=== PATIENT | female | born 1990 | race Caucasian/White ===

== ENCOUNTER 2023-02-28 08:31 | Outpatient (CLI) | payer BC, SELFPAY | END 2023-02-28 08:32 | disposition home or self-care (01) | LOC: NFLDREF 03-01 11:40 | PROVIDERS: Visit Provider Registered Nurse | DX: Z13.220 Encounter for screening for lipoid disorders (principal); R63.5 Abnormal weight gain | CPT/HCPCS: 80061; 84443 ==

== ENCOUNTER 2025-01-19 00:37 | Emergency (ER) | payer BC, SELFPAY ==
--- OUTSIDE RECORDS SUMMARY | 2025-01-19 00:39 | XMS_ITS | Clinical Summary ---
Author Organization [place] Address Formerly [facility] [place] [address] Care Team Providers Care It Architecture Analyst Name Role Phone Isabell Haro MD Primary Care Provider [phone] Allergies No known active allergies Medications No known medications Active Problems Problem Noted Date Diagnosed Date Vaginal delivery 07/13/2016 Family history of malignant neoplasm of breast 1 Overview (12/27/2015): Mother had BRCA testing and was negative. Generalized anxiety disorder 10/02/2012 Overview (01/24/2015): Diagnosis updated by automated process. Provider to review and confirm. CARDIOVASCULAR SCREENING; LDL GOAL LESS THAN 160 01/22/2010 Insomnia 05/04/2007 Overview (12/24/2014): Problem list name updated by automated process. Provider to review Resolved Problems Problem Noted Date Diagnosed Date Resolved Date Labor and delivery indicatio n for care or intervention 07/12/2016 07/17/2016 Indication for care in labor or delivery 07/12/2016 07/17/2016 Encounter for supervision of normal first in third trimester 05/23/2016 07/17/2016 Supervision of normal first 01/26/2016 05/23/2016 Routine general medical exam ination at a health care facility 03/05/2013 12/27/2015 Encounter for routine gyneco logical examination 03/05/2013 12/27/2015 Overview (12/24/2014): Problem list name updated by automated process. 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 Provider to review Irregular menstrual cycle 09/26/2006 lópez splints 11/16/2005 01/21/2012 Immunizations Immunization Administration Dates Next Due DTAP (<7y) 07/23/1994 HIB (PRP-T) 03/11/1990 HPV 04/17/2007,12/02/2006,09/26/2006 HepB 11/07/1998,06/02/1998,05/02/1998 Historical DTP/aP 11/03/1990, 0,1989,07/04 Influenza (IIV3) PF 01/21/2012,02/18/2008,2001 Influenza Vaccine >6 months,quad, PF 01/29/2018 Influenza Vaccine, 6+MO IM (QUADRIVALENT W/PRESERVATIVES) 12/27/2015 MMR (MMRII) 10/23/2001,08/04/1990 Meningococcal ACWY (Menactra ) 09/26/2006 OPV, trivalent, live 07/23/1994,11/03/18 91,1989,07/04 TD,PF 7+ (Tenivac) 10/23/2001 TDAP Vaccine (Adacel) 04/25/2016 TDAP Vaccine (Boostrix) 09/26/2006 Family History Medical History Relation Comments Breast Cancer Maternal Aunt 1 Cancer Maternal Aunt 2 cervical and Josh g Depression Maternal Aunt 3 Cerebrovascular Disease Maternal Grandfather min i strokes Heart Disease Maternal Grandfather minor heart attacks Cancer Maternal Grandmother michael Heart Disease Maternal Grandmother major heart problems and heart transplant Allergies Mother allergic to peni cillin Breast Cancer Mother Depression Mother Depression Sister Relation Status Comments Maternal Aunt 1 Maternal Aunt 2 Maternal Aunt 3 Maternal Grandfather Maternal Grandmother Mother Sister Social History Tobacco Use Types Packs/Day Years Used Date Smoking Tobacco: Never Smokeless Tobacco: Never Alcohol Use Standard Drinks/Week Comments Yes 1 (1 standard drink = 0.6 oz pur e alcohol) socially PHQ-2 Answer Date Recorded PHQ-2 Score 0 04/01/2018 Adolescent Education Answer Date Record ed Getting School Help Needed Not on file 12/30 Comments No Sex and Gender Information Value Date Recorded Sex Assigned at Not on file 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 Gender Identity Not on file Sexual Orientation Not on file Last Filed Vital Signs Vital Sign Reading Time Taken Comments Blood Pressure 110/66 08/18/2018 5:44 PM CDT Pulse 95 08/18/2018 5:44 PM CDT Temperature 37.2 C (99 F) 08/18/2018 5:44 PM CDT Respiratory Rate 16 07/15/2016 8:57 AM CDT Oxygen Saturation 98% 08/18/2018 5:44 PM CDT Inhaled Oxygen Concentration - - Weight 63 kg (138 lb 14.4 oz) 08/18/2018 5:44 PM CDT Height 165.1 cm (5' 5) 08/21/2017 7:45 AM CDT Body Mass Index 23.11 08/21/2017 7:45 AM CDT Plan of Treatment Not on file Insurance [facility] [place] Care Teams It Architecture Analyst Relationship Specialty Start Date End Date Isabell Haro MD [address] [facility] [place] [address] PCP - General Internal Medicine 08/21/17
--- OUTSIDE RECORDS SUMMARY | 2025-01-19 00:39 | XMS_ITS | Encounter Summary ---
Author Organization [place] Address [address] [facility] [place] [address] Care Team Providers Care Forms Builder Name Role Phone Stacy Dominguez MD Primary Care Provider [phone] Isabell Haro MD Primary Care Provider [phone] Isabell Haro MD Unavailable [phone] Isabell Haro MD Unavailable [phone] Reason for Visit * Reason Onset Date Comments Appointment 08/12/2017 Encounter Details Date Type Department Care Team (Late st Contact Info) Description 08/12/2017 MyC Medical Advice [facility] [place] [address] [place] [phone] Jackeline Puga MD [address] [place] [address] Appointment Social History Tobacco Use Types Packs/Day Years Used Date Smoking Tobacco: Never Smokeless Tobacco: Never Alcohol Use Standard Drinks/Week Comments Yes 1 (1 standard drink = 0.6 oz pur e alcohol) socially Comments No Sex and Gender Information Value Date Recorded Sex Assigned at Not on file 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 Gender Identity Not on file Sexual Orientation Not on file documented as of this encounter Plan of Treatment Not on file documented as of this encounter Visit Diagnoses Not on filedocumented in this encounter Additional Health Concerns Assessment Noted Time PHQ-9 Depression Total Score: 3 08/23/19 17 7:15 AM CDT documented as of this encounter Care Teams Forms Builder Relationship Specialty Start Date End Date Stacy Dominguez MD PCP - General Internal Medicine 07/26/15 08/20/17 Isabell Haro MD [facility] [facility] [place] [address] PCP - General Internal Medicine 08/21/17 Isabell Haro MD [address] [facility] [place] [address] PCP - Assigned PCP 08/25/17 05/27/18 Isabell Haor MD [address] [facility] [place] [address] Assigned PCP 08/25/17 08/27/20 documented as of this encounter
--- OUTSIDE RECORDS SUMMARY | 2025-01-19 00:39 | XMS_ITS | Encounter Summary ---
Author Organization [place] Address [address] [facility] [place] [address] Care Team Providers Care Sheeter Helper Name Role Phone Isabell Haro MD Primary Care Provider [phone] Isabell Haro MD Unavailable [phone] Encounter Details Date Type Department Care Team (Late st Contact Info) Description 07/31/[address] [place] [id number] Paul Jackson Social History Tobacco Use Types Packs/Day Years Used Date Smoking Tobacco: Never Smokeless Tobacco: Never Alcohol Use Standard Drinks/Week Comments Yes 1 (1 standard drink = 0.6 oz pur e alcohol) socially PHQ-2 Answer Date Recorded PHQ-2 Score 0 04/01/2018 Comments No Sex and Gender Information Value Date Recorded Sex Assigned at Not on file 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 Gender Identity Not on file Sexual Orientation Not on file documented as of this encounter Plan of Treatment Not on file documented as of this encounter Visit Diagnoses Not on filedocumented in this encounter Additional Health Concerns Assessment Noted Time PHQ-9 Depression Total Score: 3 08/23/19 17 7:15 AM CDT documented as of this encounter Care Teams Sheeter Helper Relationship Specialty Start Date End Date Isabell Haro MD [address] [facility] [place] [address] PCP - General Internal Medicine 08/21/17 Isabell Haro MD [address] [facility] [place] [address] Assigned PCP 08/25/17 08/27/20 documented as of this encounter
--- OUTSIDE RECORDS SUMMARY | 2025-01-19 00:39 | XMS_ITS | Encounter Summary ---
Author Organization [place] Address Formerly [facility], [address] [place] [address] Care Team Providers Care Wood Boatbuilder Name Role Phone Ivory Duncan MD Primary Care Provider Unavailable Jose Miguel Mckeon PA-C Primary Care Provider Stacy Dominguez MD Primary Care Provider [phone] Isabell Haro MD Primary Care Provider [phone] Isabell Haro MD Unavailable [phone] Isabell Haro MD Unavailable [phone] Encounter Details Date Type Department Care Team (Late st Contact Info) Description 04/02/2011 MyC Medical Advice Initial Department Paul Jackson Social History Tobacco Use Types Packs/Day Years Used Date Smoking Tobacco: Never Smokeless Tobacco: Never Alcohol Use Standard Drinks/Week Comments Yes 1.7 (1 standard drink = 0.6 oz p ure alcohol) Comments No Sex and Gender Information Value Date Recorded Sex Assigned at Not on file 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 Gender Identity Not on file Sexual Orientation Not on file documented as of this encounter Plan of Treatment Not on file documented as of this encounter Visit Diagnoses Not on filedocumented in this encounter Care Teams Wood Boatbuilder Relationship Specialty Start Date End Date Ivory Duncan MD PCP - General 05/09/01 08/12/11 Jose Miguel Mckeon PA-C [address] [address] PCP - General Family Practice 08/13/11 07/25/15 Stacy Dominguez MD [address] [address] PCP - General Internal Medicine 07/26/15 08/20/17 Isabell Haro MD [address] [place] [address] [place] [address] PCP - General Internal Medicine 08/21/17 Isabell Haro MD [address] [place] [address] [place] [address] PCP - Assigned PCP 08/25/17 05/27/18 Isabell Haro MD [address] [place] [address] [place] [address] Assigned PCP 08/25/17 08/27/20 documented as of this encounter
--- OUTSIDE RECORDS SUMMARY | 2025-01-19 00:39 | XMS_ITS | Encounter Summary ---
Author Organization [place] Address [facility] [place] [address] Care Team Providers Care Table Assembler Name Role Phone Jose Miguel Mckeon PA-C Primary Care Provider Stacy Dominguez MD Primary Care Provider [phone] Isabell Haro MD Primary Care Provider Isabell Haro MD Unavailable [phone] Isabell Haro MD Unavailable [phone] Reason for Visit * Reason Onset Date Comments MyChart Communication 08/13/2011 Encounter Details Date Type Department Care Team (Latest Contact Info) Description 08/13/2011 MyC Medical Advice [address] [address] Jose Miguel Mckeon PA-C [address] [address] MyChart Communication Social History Tobacco Use Types Packs/Day Years Used Date Smoking Tobacco: Never Smokeless Tobacco: Never Alcohol Use Standard Drinks/Week Comments Yes 1.7 (1 standard drink = 0.6 oz p ure alcohol) Comments No Sex and Gender Information Value Date Recorded Sex Assigned at Not on file Legal Sex Female 3:16 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 DAY 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 Gender Identity Not on file Sexual Orientation Not on file documented as of this encounter Plan of Treatment Not on file documented as of this encounter Visit Diagnoses Not on filedocumented in this encounter Care Teams Table Assembler Relationship Specialty Start Date End Date Jose Miguel Mckeon PA-C [address] [address] PCP - General Family Practice 08/13/11 07/25/15 Stacy Dominguez MD [address] [address] PCP - General Internal Medicine 07/26/15 08/20/17 Isabell Haro MD [facility] [facility] [place] [address] PCP - General Internal Medicine 08/21/17 Isabell Haro MD [address] [facility] [place] [address] PCP - Assigned PCP 08/25/17 05/27/18 Isabell Haro MD [facility] [facility] [place] [address] Assigned PCP 08/25/17 08/27/20 documented as of this encounter
--- OUTSIDE RECORDS SUMMARY | 2025-01-19 00:39 | XMS_ITS | Encounter Summary ---
Author Organization [place] Address [facility] [place] [address] Care Team Providers Care Aeronautical Engineering Professor Name Role Phone Jose Miguel Mckeon PA-C Primary Care Provider Stacy Dominguez MD Primary Care Provider [phone] Isabell Haro MD Primary Care Provider [phone] Isabell Haro MD Unavailable [phone] Isabell Haro MD Unavailable Reason for Visit * Reason Onset Date Comments MyChart Communication 01/14/2013 Encounter Details Date Type Department Care Team (Late st Contact Info) Description 01/14/2013 [facility] Medical Advice [facility] [id number] [place] [phone] [facility] Social History Tobacco Use Types Packs/Day Years Used Date Smoking Tobacco: Never Smokeless Tobacco: Never Alcohol Use Standard Drinks/Week Comments Yes 0.8 (1 standard drink = 0.6 oz p ure alcohol) socially Comments No Sex and Gender Information Value Date Recorded Sex Assigned at Not on file 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 Gender Identity Not on file Sexual Orientation Not on file documented as of this encounter Plan of Treatment Not on file documented as of this encounter Visit Diagnoses Not on filedocumented in this encounter Care Teams Aeronautical Engineering Professor Relationship Specialty Start Date End Date Jose Miguel Mckeon PA-C [address] [address] PCP - General Family Practice 08/13/11 07/25/15 Stacy Dominguez MD [address] [address] PCP - General Internal Medicine 07/26/15 08/20/17 Isabell Haro MD [address] [place] [address] [place] [address] PCP - General Internal Medicine 08/21/17 Isabell Haro MD [address] [place] [address] [place] [address] PCP - Assigned PCP 08/25/17 05/27/18 Isabell Haro MD [address] [place] [address] [place] [address] Assigned PCP 08/25/17 08/27/20 documented as of this encounter
--- OUTSIDE RECORDS SUMMARY | 2025-01-19 00:39 | XMS_ITS | Encounter Summary ---
Author Organization [place] Address [facility] [place] [address] Care Team Providers Care Entry Driver Operator Name Role Phone Jose Miguel Mckeon PA-C Primary Care Provider Stacy Dominguez MD Primary Care Provider [phone] Isabell Haro MD Primary Care Provider [phone] Isabell Haro MD Unavailable [phone] Isabell Haro MD Unavailable [phone] Encounter Details Date Type Department Care Team (Late st Contact Info) Description 01/15/2012 [facility] Medical [facility] [address] [place] [address] [facility] Social History Tobacco Use Types Packs/Day Years Used Date Smoking Tobacco: Never Smokeless Tobacco: Never Alcohol Use Standard Drinks/Week Comments Yes 1.7 (1 standard drink = 0.6 oz p ure alcohol) Comments No Sex and Gender Information Value Date Recorded Sex Assigned at Not on file 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 Gender Identity Not on file Sexual Orientation Not on file documented as of this encounter Plan of Treatment Not on file documented as of this encounter Visit Diagnoses Not on filedocumented in this encounter Care Teams Entry Driver Operator Relationship Specialty Start Date End Date Jose Miguel Mckeon PA-C [address] [address] PCP - General Family Practice 08/13/11 07/25/15 Stacy Dominguez MD [address] [address] PCP - General Internal Medicine 07/26/15 08/20/17 Isabell Haro MD [address] [facility] [place] [id number] PCP - General Internal Medicine 08/21/17 Isabell Haro MD [facility] [facility] [place] [address] PCP - Assigned PCP 08/25/17 05/27/18 Isabell Haro MD [facility] [facility] [place] [address] Assigned PCP 08/25/17 08/27/20 documented as of this encounter
--- OUTSIDE RECORDS SUMMARY | 2025-01-19 00:39 | XMS_ITS | Encounter Summary ---
Author Organization [place] Address [facility] [address] Care Team Providers Care Resident Advisor Name Role Phone Jose Miguel Mckeon PA-C Primary Care Provider Stacy Dominguez MD Primary Care Provider [phone] Isabell Haro MD Primary Care Provider [phone] Isabell Haro MD Unavailable [phone] Isabell Haro MD Unavailable [phone] Encounter Details Date Type Department Care Team (Late st Contact Info) Description 02/11/2012 [facility] [address] [place] [address] [facility] Social History Tobacco Use Types Packs/Day Years Used Date Smoking Tobacco: Never Smokeless Tobacco: Never Alcohol Use Standard Drinks/Week Comments Yes 0.8 (1 standard drink = 0.6 oz p ure alcohol) Comments No Sex and Gender Information Value Date Recorded Sex Assigned at Not on file Legal Sex Female 3:16 AM QUALITY CHECKER Gender Identity Not on file Sexual Orientation Not on file documented as of this encounter Plan of Treatment Not on file documented as of this encounter Visit Diagnoses Not on filedocumented in this encounter Care Teams Resident Advisor Relationship Specialty Start Date End Date Jose Miguel Mckeon PA-C [address] [address] PCP - General Family Practice 08/13/11 07/25/15 Stacy Dominguez MD [address] [address] PCP - General Internal Medicine 07/26/15 08/20/17 Isabell Haro MD [address] [facility] [place] [id number] PCP - General Internal Medicine 08/21/17 Isabell Haro MD [facility] [place] [address] PCP - Assigned PCP 08/25/17 05/27/18 Isabell Haro MD [facility] [place] [address] Assigned PCP 08/25/17 08/27/20 documented as of this encounter
--- OUTSIDE RECORDS SUMMARY | 2025-01-19 00:39 | XMS_ITS | Clinical Summary ---
Author Organization [facility] Address [address] [place] [address] Care Team Providers Care Hydrocrane Operator Name Role Phone Pcp, No Primary Care Provider Unavailabl e Allergies No known active allergies Medications cephalexin (KEFLEX) 500 mg capsule Take 500 mg by mouth two times daily. 03/15/2022 Active busPIRone (BUSPAR) 15 mg tablet Take 15 mg by mouth two times daily. 01/30/2022 Active sertraline (ZOLOFT) 50 mg tablet Take 50 mg by mouth once daily. 01/30/2022 Active fluticasone (50 mcg per actuation) nasal solution (FLONASE) SHAKE LIQUID AND USE 1 SPRAY IN EACH NOSTRIL TWICE DAILY 09/20/2021 Active Active Problems No known active problems Social History Tobacco Use Types Packs/Day Years Used Date Smoking Tobacco: Never Smokeless Tobacco: Never Tobacco Cessation:Counseling Given: Not Answered Alcohol Use Standard Drinks/Week Comments Yes 0 (1 standard drink = 0.6 oz pur e alcohol) once weekly Comments No Sex and Gender Information Value Date Recorded Sex Assigned at Not on file Legal Sex Female 4:12 PM CDT Gender Identity Not on file Sexual Orientation Not on file Obstetrics History Last Filed Vital Signs Vital Sign Reading Time Taken Comments Blood Pressure 137/86 03/17/2022 12:30 PM BRIM POUNCER Pulse 62 03/17/2022 12:30 PM BRIM POUNCER Temperature 36.5 C (97.7 F) 03/17/2022 12:30 PM BRIM POUNCER Respiratory Rate 18 03/17/2022 12:30 PM BRIM POUNCER Oxygen Saturation 99% 03/17/2022 12:30 PM BRIM POUNCER Inhaled Oxygen Concentration - - Weight 68 kg (150 lb) 03/17/2022 12:30 PM BRIM POUNCER Height 165.1 cm (5' 5) 03/17/2022 12:30 PM BRIM POUNCER Body Mass Index 24.96 03/17/2022 12:30 PM BRIM POUNCER Plan of Treatment Health Maintenance Due Date Last Done Comments Tetanus booster 2000 Depression screening for age 12+ 2001 HIV for age 15-65 2004 Hepatitis C screening for ag e 18-79 2007 Hepatitis B series for 19+ ( 1 of 3 - 19+ 3-dose series) 2008 HPV series for age 9-45 (1 - 3-dose SCDM series) 2016 BMI (ht and wt on same day) for age 18+ 03/17/2023 03/17/2022 Pap test for age 21-65 07/12/2024 , 07/12/2021, 09/23/2018 Influenza Vaccine (#1) 2024 RSV vaccine for adults or (1 - 1-dose 75+ series) 2064 Pneumococcal series for age 6-49 Aged Out No longer eligible b ased on patient's age to complete this topic Procedures Procedure Name Priority Date/Time Associated Diagnosis Comments HPV HIGH RISK Routine 07/12/2021 12:00 PM CDT from Last 3 Months or Most Recently Relevant to Health Maintenance Results * HPV HIGH RISK (07/12/2021 12:00 PM CDT) TYPE 16 Negative Negative 07/14/2021 2:25 PM CDT [facility] TYPE 18 Negative Negative 07/14/2021 2:25 PM CDT [facility] OTHER HIGH RISK TYPES Negative Negative 07/14/2021 2:25 PM CDT [facility] Other (Cervical/Vagina l) 07/12/2021 12:00 PM CDT 07/13/2021 8:42 AM CDT Narrative [facility] - 07/14/2021 2:25 PM CDT HPV types 16, 18, 31, 33, 35, 39, 45, 51, 52, 56, 58, 59, 66 and 68 DNA were undetectable or below the pre-set threshold. Methodology: [place] 4800 HPV Test us Debbie Mullins NP MICROBIOLOGY Final Res ult [facility] [address] [place] [address], [place] from Last 3 Months or Most Recently Relevant to Health Maintenance Insurance [facility] Care Teams Hydrocrane Operator Relationship Specialty Start Date End Date Pcp, No . PCP - General 03/17/22
--- OUTSIDE RECORDS SUMMARY | 2025-01-19 00:39 | XMS_ITS | Encounter Summary ---
Author Organization [place] Address [address] [facility] [place] [address] Care Team Providers Care Gravel Inspector Name Role Phone Stacy Dominguez MD Primary Care Provider [phone] Isabell Haro MD Primary Care Provider [phone] Isabell Haro MD Unavailable [phone] Isabell Haro MD Unavailable [phone] Reason for Visit * Reason Onset Date Comments Care 06/11/2016 Encounter Details Date Type Department Care Team (Late st Contact Info) Description 06/11/2016 MyC Medical Advice [facility] [address] [place] [address] Jackeline Puga MD [address] [place] [address] Care Social History Tobacco Use Types Packs/Day Years Used Date Smoking Tobacco: Never Smokeless Tobacco: Never Alcohol Use Standard Drinks/Week Comments Yes 1 (1 standard drink = 0.6 oz pur e alcohol) socially Comments Yes Sex and Gender Information Value Date Recorded Sex Assigned at Not on file Legal Sex Female 3:16 AM LEATHER HEEL 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 Gender Identity Not on file Sexual Orientation Not on file documented as of this encounter Plan of Treatment Not on file documented as of this encounter Visit Diagnoses Not on filedocumented in this encounter Care Teams Gravel Inspector Relationship Specialty Start Date End Date Stacy Dominguez MD PCP - General Internal Medicine 07/26/15 08/20/17 Isabell Haro MD [address] [place] [address] [place] [address] PCP - General Internal Medicine 08/21/17 Isabell Haro MD [address] [place] [address] [place] [address] PCP - Assigned PCP 08/25/17 05/27/18 Isabell Haro MD [address] [place] [address] [place] [address] Assigned PCP 08/25/17 08/27/20 documented as of this encounter
--- OUTSIDE RECORDS SUMMARY | 2025-01-19 00:39 | XMS_ITS | Encounter Summary ---
Author Organization [place] Address [address] [facility] [address] Care Team Providers Care Geospatial Engineer Name Role Phone Stacy Dominguez MD Primary Care Provider [phone] Isabell Haro MD Primary Care Provider [phone] Isabell Haro MD Unavailable [phone] Isabell Haro MD Unavailable [phone] Encounter Details Date Type Department Care Team (Late st Contact Info) Description 07/22/2016 MyC Medical Advice [facility] [address] [facility] [address] [place] [address] Jackeline Puga MD [address] [place] [address] Social History Tobacco Use Types Packs/Day Years Used Date Smoking Tobacco: Never Smokeless Tobacco: Never Alcohol Use Standard Drinks/Week Comments Yes 1 (1 standard drink = 0.6 oz pur e alcohol) socially Comments No Sex and Gender Information Value Date Recorded Sex Assigned at Not on file 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 Sex Female 3: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 Gender Identity Not on file Sexual Orientation Not on file documented as of this encounter Plan of Treatment Not on file documented as of this encounter Visit Diagnoses Not on filedocumented in this encounter Care Teams Geospatial Engineer Relationship Specialty Start Date End Date Stacy Dominguez MD PCP - General Internal Medicine 07/26/15 08/20/17 Isabell Haro MD [address] [facility] [place] [address] PCP - General Internal Medicine 08/21/17 Isabell Haro MD [address] [facility] [place] [address] PCP - Assigned PCP 08/25/17 05/27/18 Isabell Haro MD [address] [facility] [place] [address] Assigned PCP 08/25/17 08/27/20 documented as of this encounter
--- OUTSIDE RECORDS SUMMARY | 2025-01-19 00:39 | XMS_ITS | Encounter Summary ---
Author Organization [place] Address [facility] [place] [address] Care Team Providers Care Manager Social Responsibility Name Role Phone Jose Miguel Mckeon PA-C Primary Care Provider Stacy Dominguez MD Primary Care Provider [phone] Isabell Haro MD Primary Care Provider [phone] Isabell Haro MD Unavailable [phone] Isabell Haro MD Unavailable [phone] Encounter Details Date Type Department Care Team (Late st Contact Info) Description 01/07/2012 [facility] [id number] [place] [address] [facility] [facility] Social History Tobacco Use Types Packs/Day Years Used Date Smoking Tobacco: Never Smokeless Tobacco: Never Alcohol Use Standard Drinks/Week Comments Yes 1.7 (1 standard drink = 0.6 oz p ure alcohol) Comments No Sex and Gender Information Value Date Recorded Sex Assigned at Not on file 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 Gender Identity Not on file Sexual Orientation Not on file documented as of this encounter Plan of Treatment Not on file documented as of this encounter Visit Diagnoses Not on filedocumented in this encounter Care Teams Manager Social Responsibility Relationship Specialty Start Date End Date Jose Miguel Mckeon PA-C [address] [address] PCP - General Family Practice 08/13/11 07/25/15 Stacy Dominguez MD [address] [address] PCP - General Internal Medicine 07/26/15 08/20/17 Isabell Haro MD [address] [facility] [place] [id number] PCP - General Internal Medicine 08/21/[address] [facility] [place] [address] PCP - Assigned PCP 08/25/17 05/27/[address] [facility] [place] [address] Assigned PCP 08/25/17 08/27/20 documented as of this encounter
--- OUTSIDE RECORDS SUMMARY | 2025-01-19 00:39 | XMS_ITS | Encounter Summary ---
Author Organization [place] Address [facility] [place] [address] Care Team Providers Care Director Public Service Name Role Phone Jose Miguel Mckeon PA-C Primary Care Provider Stacy Dominguez MD Primary Care Provider [phone] Isabell Haro MD Primary Care Provider [phone] Isabell Haro MD Unavailable [phone] Isabell Haro MD Unavailable [phone] Encounter Details Date Type Department Care Team (Late st Contact Info) Description 10/25/2011 MyC Medical Advice [address] [address] Jose Miguel Mckeon PA-C [facility] [address] [place] [address] Social History Tobacco Use Types Packs/Day Years Used Date Smoking Tobacco: Never Smokeless Tobacco: Never Alcohol Use Standard Drinks/Week Comments Yes 1.7 (1 standard drink = 0.6 oz p ure alcohol) Comments No Sex and Gender Information Value Date Recorded Sex Assigned at Not on file 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 Gender Identity Not on file Sexual Orientation Not on file documented as of this encounter Plan of Treatment Not on file documented as of this encounter Visit Diagnoses Not on filedocumented in this encounter Care Teams Director Public Service Relationship Specialty Start Date End Date Jose Miguel Mckeon PA-C [address] [address] PCP - General Family Practice 08/13/11 07/25/15 Stacy Dominguez MD [address] [address] PCP - General Internal Medicine 07/26/15 08/20/17 Isabell Haro MD [address] [facility] [place] [address] PCP - General Internal Medicine 08/21/17 Isabell Haro MD [address] [facility] [place] [address] PCP - Assigned PCP 08/25/17 05/27/18 Isabell Haro MD [facility] [facility] [place] [address] Assigned PCP 08/25/17 08/27/20 documented as of this encounter
--- OUTSIDE RECORDS SUMMARY | 2025-01-19 00:39 | XMS_ITS | Encounter Summary ---
Author Organization [place] Address [address] [place] [address] Care Team Providers Care Mechanical Product Engineer Name Role Phone Stacy Dominguez MD Primary Care Provider [phone] Isabell Haro MD Primary Care Provider [phone] Isabell Haro MD Unavailable [phone] Isabell Haro MD Unavailable [phone] Encounter Details Date Type Department Care Team (Late st Contact Info) Description 12/03/2016 [facility] [address] [place] [address] Erick De León Social History Tobacco Use Types Packs/Day Years Used Date Smoking Tobacco: Never Smokeless Tobacco: Never Alcohol Use Standard Drinks/Week Comments Yes 1 (1 standard drink = 0.6 oz pur e alcohol) socially Comments No Sex and Gender Information Value Date Recorded Sex Assigned at Not on file 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 [place] [address] PCP - General Internal Medicine 08/21/17 Isabell Haro MD [address] [facility] [place] [address] PCP - Assigned PCP 08/25/17 05/27/18 Isabell Haro MD [address] [facility] [place] [address] Assigned PCP 08/25/17 08/27/20 documented as of this encounter
--- OUTSIDE RECORDS SUMMARY | 2025-01-19 00:39 | XMS_ITS | Encounter Summary ---
Author Organization [place] Address [address] [facility] [address] Care Team Providers Care Electrical Manufacturing Technician Name Role Phone Isabell Haro MD Primary Care Provider [phone] Isabell Haro MD Unavailable [phone] Encounter Details Date Type Department Care Team (Late st Contact Info) Description 08/19/2018 MyC Medical Advice [facility] [address] [place] [address] Isabell Haro MD [address] [place] [address] [place] [address] Social History Tobacco Use Types Packs/Day Years Used Date Smoking Tobacco: Never Smokeless Tobacco: Never Alcohol Use Standard Drinks/Week Comments Yes 1 (1 standard drink = 0.6 oz pur e alcohol) socially PHQ-2 Answer Date Recorded PHQ-2 Score 0 04/01/2018 Comments No Sex and Gender Information Value Date Recorded Sex Assigned at Not on file 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 Gender Identity Not on file Sexual Orientation Not on file documented as of this encounter Plan of Treatment Not on file documented as of this encounter Visit Diagnoses Not on filedocumented in this encounter Additional Health Concerns Assessment Noted Time PHQ-9 Depression Total Score: 3 08/23/19 17 7:15 AM CDT documented as of this encounter Care Teams Electrical Manufacturing Technician Relationship Specialty Start Date End Date Isabell Haro MD [address] [facility] [place] [address] PCP - General Internal Medicine 08/21/17 Isabell Haro MD [address] [facility] [place] [address] Assigned PCP 08/25/17 08/27/20 documented as of this encounter
--- OUTSIDE RECORDS SUMMARY | 2025-01-19 00:39 | XMS_ITS | Encounter Summary ---
Author Organization [place] Address [address] [facility] [place] [address] Care Team Providers Care Drafter Topographical Name Role Phone Stacy Dominguez MD Primary Care Provider [phone] Isabell Haro MD Primary Care Provider [phone] Isabell Haro MD Unavailable [phone] Isabell Haro MD Unavailable [phone] Encounter Details Date Type Department Care Team (Late st Contact Info) Description 03/15/2016 [facility] Medical Advice [address] [address] Jackeline Puga MD [facility] [place] [address] Social History Tobacco Use Types Packs/Day Years Used Date Smoking Tobacco: Never Smokeless Tobacco: Never Alcohol Use Standard Drinks/Week Comments Yes 1 (1 standard drink = 0.6 oz pur e alcohol) socially Comments Yes Sex and Gender Information Value Date Recorded Sex Assigned at Not on file 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 Gender Identity Not on file Sexual Orientation Not on file documented as of this encounter Plan of Treatment Not on file documented as of this encounter Visit Diagnoses Not on filedocumented in this encounter Care Teams Drafter Topographical Relationship Specialty Start Date End Date Stacy Domignuez MD PCP - General Internal Medicine 07/26/15 08/20/17 Isabell Haro MD [address] [facility] [place] [address] PCP - General Internal Medicine 08/21/17 Isabell Haro MD [address] [facility] [place] [address] PCP - Assigned PCP 08/25/17 05/27/18 Isabell Haro MD [address] [facility] [place] [address] Assigned PCP 08/25/17 08/27/20 documented as of this encounter
--- OUTSIDE RECORDS SUMMARY | 2025-01-19 00:39 | XMS_ITS | Encounter Summary ---
Author Organization [place] Address [facility] [address] Care Team Providers Care Supervisor Waterworks Name Role Phone Jose Miguel Mckeon PA-C Primary Care Provider Stacy Dominguez MD Primary Care Provider [phone] Isabell Haro MD Primary Care Provider [phone] Isabell Haro MD Unavailable [phone] Isabell Haro MD Unavailable [phone] Reason for Visit * Reason Onset Date Comments MyChart Communication 10/30/2011 Encounter Details Date Type Department Care Team (Latest Contact Info) Description 10/30/2011 MyC Medical Advice [facility] [address] [place] [address] Jose Miguel Mckeon PA-C [address] [address] MyChart Communication Social History Tobacco Use Types Packs/Day Years Used Date Smoking Tobacco: Never Smokeless Tobacco: Never Alcohol Use Standard Drinks/Week Comments Yes 1.7 (1 standard drink = 0.6 oz p ure alcohol) Comments No Sex and Gender Information Value Date Recorded Sex Assigned at Not on file 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 Gender Identity Not on file Sexual Orientation Not on file documented as of this encounter Plan of Treatment Not on file documented as of this encounter Visit Diagnoses Not on filedocumented in this encounter Care Teams Supervisor Waterworks Relationship Specialty Start Date End Date Jose Miguel Mckeon PA-C [address] [address] PCP - General Family Practice 08/13/11 07/25/15 Stacy Dominguez MD [address] [address] PCP - General Internal Medicine 07/26/15 08/20/17 Isabell Haro MD [facility] [place] [address] PCP - General Internal Medicine 08/21/17 Isabell Haro MD [address] [facility] [place] [address] PCP - Assigned PCP 08/25/17 05/27/18 Isabell Haro MD [facility] [place] [address] Assigned PCP 08/25/17 08/27/20 documented as of this encounter
[2025-01-19 00:42] VITALS: BP 158/110; BP 173/122; PULSE 83; RESP 18; TEMP 36.8; O2SAT 98; BMI 23.3
[2025-01-19 01:02] LABS: Appearance Urine Clear (Clear)
[2025-01-19 01:05] LABS: Ur HCG Qualitative* Negative (Negative)
--- NOTE | 2025-01-19 01:12 | CRLHL7_ITS ---
For Patients: As a result of the Century Cures Act, medical imaging exams and procedure reports are released immediately into your electronic medical record. You may view this report before your referring provider. If you have questions, please contact your health care provider. INDICATION: Quadrant pain. TECHNIQUE: CT abdomen and pelvis acquired with 69 cc of Isovue 370 IV contrast. COMPARISON: None. FINDINGS: Lower chest: Unremarkable. Liver: Unremarkable. Normal in size and attenuation. No suspicious masses. Gallbladder and bile ducts: Cholelithiasis. No inflammation or biliary ductal dilation. Pancreas: Unremarkable. No mass or inflammation. Spleen: Unremarkable. Normal in size. No masses. Adrenal glands: Unremarkable. No nodules. Kidneys: 2 mm nonobstructing left nephrolith. No hydronephrosis or suspicious mass bilaterally. GI tract: Unremarkable. Normal in caliber. No sign of mass or inflammation. Normal appendix. Vasculature: Abdominal aorta is normal in caliber. Mesenteric arteries are patent. Lymph nodes: No lymphadenopathy. Peritoneum/Abdominal Wall: Unremarkable. No free air or significant free fluid. Pelvis: Unremarkable. Bones: Unremarkable for age. IMPRESSION: No acute findings within the abdomen and pelvis. Normal appendix. Please note that all CT scans at this facility use dose modulation, iterative reconstruction, and/or weight-based dosing when appropriate to reduce radiation dose to as low as reasonably achievable. Dictated by Mihir Whatley MD @ 01/19/2025 1:51:40 AM (Electronically Signed)
--- NOTE | 2025-01-19 01:14 | ED_ITS ---
HPI - General Adult General Chief complaint: Abdominal Pain Stated complaint: right side abdominal pain Time Seen by Provider: 01/19/25 00:38 Source: patient Mode of arrival: ambulatory Limitations: no limitations History of Present Illness HPI narrative: 34-year-old female with no prior history of abdominal surgeries presents to the ED with evaluation of right lower to mid abdominal pain for the past 5 hours. R adiates into the right mid back and up to the inferior border of the right scapula. Accompanied by some nausea but no vomiting. No diarrhea or loose stools, no bloody stools. Has tried some Gas-X and ibuprofen with very limited temporary improvement, but the pain does seem to return. She has similar episode last Saturday and then once earlier in the month as well. No prior history of gallbladder disease, no prior abdominal surgeries. Denies chance of . No dysuria, no hematuria. No history of chronic abdominal conditions. No fevers. No prior history of similar symptoms with the exception of this month. No prior investigation of the symptoms. No history of DVT or PE, not anticoagulated. Past medical history notable for depression. Home medications are oral contraceptive and bupropion. Denies allergies. Nonsmoker. ROS is notable for the GI symptoms only, otherwise denies times 12 systems. Related Data Previous Rx's ?Medication ?Instructions ?Recorded L norgest/E estradiol-E estrad See Rx Instructions PO .COMPLEX 03/02/24 0.15 mg-30 mcg (84)/10 mcg(7) #182 ea tabs,3mos hydroxyzine HCl 10 mg tablet 10 mg PO TID PRN anxiety #90 tabs 06/05/24 bupropion HCl 150 mg 24 hr tablet, 150 mg PO QAM #90 t abs 06/15/24 extended release (Wellbutrin XL) Allergies Allergy/AdvReac Type Severity Reaction Status Date / Time No Known Drug Allergies Allergy Verified 01/19/25 00:48 [facility] Medical History History of pre-eclampsia ?Z87.59 - Personal history of other complications of , childbirth and the puerperium (ICD-10) Surgical History Hx of LASIK (2011) ?Z98.890 - Other specified postprocedural states (ICD-10) History of tonsillectomy (05/14/20) ?Z90.89 - Acquired absence of other organs (ICD-10) History of third molar tooth extraction (2007) ?K08.409 - Partial loss of teeth, unspecified cause, unspecified class (ICD- 10) Family History Mother Breast cancer Chronic mental illness Aunt Breast cancer Sister Chronic mental illness Paternal Grandmother Stroke Other Endometrial cancer Social History What is your current living situation?: I presently have a place to live Problems where you live: no known problems In the past 12 months, utilities in danger of being shut off: no In past 12 months, lack of transportation kept you from medical appts, meetings, work, or getting things needed for daily living: no In the past 12 mos, have been you worried that your food would run out before you had money to buy more?: never true In the past 12 mos, the food you bought just didn't last and you didn't have money to buy more?: never true Smoking Status: Never smoker Do you use any of these nicotine containing products: None Second hand tobacco smoke exposure: No How often do you have a drink containing alcohol: never How often do you have six or more drinks on one occasion: Never AUDIT-C Alcohol total score: 0 Non-prescribed substance use: denies use How often does anyone, including family, friends and others, physically hurt you : never How often does anyone, including family, friends and others, insult or talk down to you: never How often does anyone, including family, friends and others, threaten you with harm: never How often does anyone, including family, friends and others, scream or curse at you: never Exam Const: Vital Signs, click to edit/add: Vital Signs - 24 hr 01/19/25 00:42 Temperature 98.2 F Pulse Rate [Pulse Oximeter] 83 Respiratory Rate 18 Blood Pressure [Le ft Upper Arm] 158/110 H Blood Pressure [Ri ght Upper Arm] 173/122 H Pulse Oximetry 98 Oxygen Delivery Me thod Room Air Documenting provider has reviewed patient's vital signs: yes Common normals: no apparent distress General appearance: cooperative and well kempt HENMT: Common normals: normocephalic and moist oral mucous membranes Head and scalp: normocephalic Face and sinus: normal facial exam Eye: Common normals: conjunctivae normal General eye: normal appearance of both eyes Conjunctiva: conjunctiva(e) normal Neck & C-Spine: General: normal visual inspection Resp: Common normals: normal respiratory effort, no use of accessory muscles and clear to auscultation bilaterally Effort & inspection: able to speak in complete sentences Auscultation: clear to auscultation bilaterally Cardio: Common normals: regular rate, regular rhythm, S1 normal heart sound, S2 normal heart sound and no murmurs Rate: regular rate Rhythm: regular rhythm Heart sounds: S1 normal and S2 normal GI: Common normals: Normal to inspection, nondistended, normoactive bowel sounds present, soft to palpation, no hepatosplenomegaly and no masses Palpation: soft and no hepatosplenomegaly Other: Tender right upper quadrant, right mid abdomen but not right lower quadrant. No rebound tenderness or guarding. : Common normals: no CVA tenderness Bladder/kidney exam: no CVA tenderness Back & Pelvis: Common normals: no CVA tenderness Extremity: Common normals: normal to inspection and normal capillary refill Psych: Appearance: well kempt Attitude: engaged Activity/motor behavior: appropriate eye contact Insight: insight good Judgement: judgment good Skin: Common normals: no rashes or lesions noted General skin exam: no rashes or lesions noted Course Course ED Course: 34-year-old female with right mid abdominal pain. Differential diagnosis including nephrolithiasis, cholecystitis, choledocholithiasis, colitis, appendicitis, bowel obstruction, pancreatitis, musculoskeletal pain, gastritis, gynecological pathology, complication, amongst others. Will obtain test, urinalysis. Counseled patient on differential diagnosis. The recurrence of the symptoms does suggest gallstones, but her exam was not exactly consistent with any particular pathology. We do not have ultrasound readily available at this time of night, I have recommended a CT scan, typical intra- abdominal labs, can consider calling in ultrasound if findings are inconclusive. Reevaluation(s) Time of Reevaluation #1: 03:42 Reevaluation #1: Counseled patient on findings. Symptoms are quite a bit better on the Toradol. Appears very comfortable. She has not had any vomiting, fever, unstable vitals or other worrisome findings here. We discussed the results of her CT scan, ultrasound and labs. Ultrasound does show gallstone but it does not appear to be impacted. This could be the root of her symptoms or could be something such as irritable bowel, mild constipation, etc.. Reviewed this with patient. Encouraged her to use [id number] Tylenol and ibuprofen and have an outpatient HIDA scan if she continues to have persistent similar spells. I also recommended that she return to the emergency room she has high fever, bloody stools, bloody vomit or other worrisome findings. Alarm symptoms reviewed that would warrant more urgent concern. She verbalizes understanding and agreement. Vital Signs Vital signs: Initial Vital Signs Temperature 98.2 F 01/19/25 00:42 Temperature Source Temporal Artery Scan 01/19/25 00:42 Pulse Rate 83 01/19/25 00:42 Pulse Rhythm Regular 01/19/25 00:42 Respiratory Rate 18 01/19/25 00:42 Blood Pressure 173/122 H 01/19/25 00:42 Blood Pressure Mean 139 H 01/19/25 00:42 Blood Pressure Position Sitting 01/19/25 00:42 Pulse Oximetry 98 01/19/25 00:42 Oxygen Delivery Method Room Air 01/19/25 00:42 Vital Signs Temperature 98.2 F 01/19/25 00:42 Pulse Rate 83 01/19/25 00:42 Respiratory Rate 18 01/19/25 00:42 Blood Pressure 173/122 H 01/19/25 00:42 Pulse Oximetry 98 01/19/25 00:42 Oxygen Delivery Method Room Air 01/19/25 00:42 Temperature 98.2 F 01/19/25 00:42 Pulse Rate 83 01/19/25 00:42 Respiratory Rate 18 01/19/25 00:42 Blood Pressure 173/122 H 01/19/25 00:42 Pulse Oximetry 98 01/19/25 00:42 Oxygen Delivery Method Room Air 01/19/25 00:42 Medications Administered Medications: Discontinued Medications Generic Name Dose Route Start Last Admin Trade Name Freq PRN Reason Stop Dose Admin Ketorolac Tromethamine 15 mg 01/19/25 01:08 01/19/25 01:37 Ketorolac 15 Mg/Ml Inj IVP 01/19/25 01:09 15 mg ONCE ONE Administration Ondansetron HCl 4 mg 01/19/25 01:08 01/19/25 01:36 Ondansetron 2 Mg/Ml Inj IVP 01/19/25 01:09 4 mg ONCE ONE Administration Medical Decision Making Lab Data Lab results narrative: Labs very reassuring. No leukocytosis, no elevated inflammatory markers, normal liver enzymes. No pancreatitis. Labs: Lab Results 01/19/25 01/19/25 Range/Units 00:55 01:15 WBC 6.47 (4.50-11.00) K/uL RBC 4.51 (4.00-5.20) m/uL Hgb 13.4 (12.0-16.0) gm/dL Hct 38.5 (33.0-51.0) % MCV 85 (80-100) fL MCH 30 (26-34) pg MCHC 35 (32-36) gm/dL RDW Coeff of Sonia 11.7 (11.5-15.5) % Plt Count 219 (140-440) K/uL Neut % (Auto) 51.3 (42.0-72.0) % Lymph % (Auto) 41.4 (20-44) % Edmonson % (Auto) 5.3 (0.0-11.0) % Eos % (Auto) 1.2 (0.0-7.0) % Baso % (Auto) 0.5 (0.0-3.0) % Neut # (Auto) 3.32 (1.7-7.0) K/uL Lymph # (Auto) 2.68 (0.90-2.90) K/uL Edmonson # (Auto) 0.30 (0.00-0.90) K/UL Eos # (Auto) 0.08 (0.00-0.50) K/uL Baso # (Auto) 0.03 (0.00-0.30) K/uL Abs Immat Gran (auto) 0.02 (0.00-0.30) K/uL Imm/Tot Granulo (auto) 0.3 % Sodium 140 (135-149) mmol/L Potassium 3.8 (3.6-5.1) mmol/L Chloride 106 (96-114) mmol/L Carbon Dioxide 24 (20-32) mmol/L Anion Gap 10 (7-15) mEq/L BUN 12 (5-24) mg/dL Creatinine 0.9 (0.5-1.5) mg/dL Estimated Creat Clear 78.51 Estimated GFR 86 ml/min Glucose 114 (60-115) mg/dL Lactate 0.7 (0.5-1.9) mmol/L Calcium 9.3 (8.4-10.6) mg/dL Total Bilirubin 0.5 (0.1-1.5) mg/dL AST 22 (12-35) U/L ALT 18 (4-35) U/L Alkaline Phosphatase 44 (40-150) U/L C-Reactive Protein < 0.5 L (0.5-1.0) mg/dL Total Protein 7.5 (6.0-8.3) g/dL Albumin 4.3 (3.3-5.0) g/dL Lipase 158 (23-300) U/L Urine Color Yellow (Yellow) Urine Appearance Clear (Clear) Urine pH 6.5 (5.0-8.5) Ur Specific Justin 1.010 (1.000-1.030) Urine Protein Negative (Negative) Urine Glucose (UA) Negative (Negative) Urine Ketones Negative (Negative) Urine Blood Trace-lysed A (Negative) Urine Nitrite Negative (Negative) Urine Bilirubin Negative (Negative) Urine Urobilinogen 0.2 (0.2-1.0) Ur Leukocyte Esterase Trace A (Negative) Urine RBC 0-2 (0-2) Urine WBC 0-2 (0-5) Ur Squamous Epith Cells Few (None-Few) Amorphous Sediment Few A (None) Urine Bacteria Few A (None) Urine HCG, Qual Negative (Negative) Imaging Data CT scan - abdomen: Attestation: I have reviewed the pertinent imaging results. My impression: Normal CT, gallbladder looks distended but I do not see any thickening in the wall, no stones Radiologist's impression: IMPRESSION: No acute findings within the abdomen and pelvis. Normal appendix. Please note that all CT scans at this facility use dose modulation, iterative reconstruction, and/or weight-based dosing when appropriate to reduce radiation dose to as low as reasonably achievable. Dictated by Mihir Whatley MD @ 01/19/2025 1:51:40 AM Ultrasound abdomen: Attestation: I have reviewed the pertinent imaging results. My impression: Gallstone but no evidence of wall thickening or common bile duct involvement Radiologist's impression: IMPRESSION: Cholelithiasis without evidence of cholecystitis. Dictated by Laron Dobson MD @ 01/19/2025 3:25:53 AM Discharge Plan Discharge Clinical Impression: Gallstone Patient Disposition: Home, Self-Care Condition: Stable Instructions: Gallstones (ED) Additional Instructions: As we discussed, CT, ultrasound and lab findings are not consistent with anything serious. There are no signs of obstruction, pancreatitis, infection or severe inflammation. Ultrasound does show a gallstone which clinically does fit with your symptoms and is likely the cause of your pain. These are very common in women in can be frustrating, especially since they do not like to follow specific patterns and have reproducible causes. To work this up further, we could consider doing a HIDA scan which is a test ordered by your outpatient primary care team. Typically with a single or a few close together episodes like you are describing that do not have any signs of obstruction or infection, conservative management is recommended. Treat pain with 600 mg of ibuprofen every 6 hours and or Tylenol 1000 mg every 6 hours. Try to avoid high fat foods, as these are more likely to flare your symptoms. If you have persistent spells, please see your primary care doctor to arrange a HIDA scan or surgical consult. If you have very high fever, persistent vomiting or constant severe pain that is lasting for more than about 24 hours, we would recommend ER re-evaluation. You are medically cleared to return to work and or other typical duties with no restrictions. Activity Level: No Restrictions Discharge Diet: Regular Prescriptions: No Action L norgest/e.estradiol-e.estrad 0.15 mg-30 mcg (84)/10 mcg (7) tablets,dose pack,3 month See Rx Instructions PO .COMPLEX Qty: 182 3RF Rx Instructions: take 1 tablet daily following the order on blister card(s) PO bupropion HCl [Wellbutrin XL] 150 mg tablet extended release 24 hr 150 mg PO QAM Qty: 90 3RF hydroxyzine HCl 10 mg tablet 10 mg PO TID PRN (Reason: anxiety) Qty: 90 12RF Follow Up/Referrals: Tish Dorado MD [Primary Care Provider, Family Practice] Stand Alone Forms: [employer] Info Instructions
[2025-01-19 01:28] LABS: Lactate* 0.7 mmol/L (0.5-1.9)
[2025-01-19 01:29] LABS: Hematocrit* 38.5 % (33.0-51.0); Hemoglobin* 13.4 gm/dL (12.0-16.0); Immature Granulocytes Abs Auto 0.02 K/uL (0.00-0.30); Immature Granulocytes Pct Auto 0.3 %; Lymphocytes Absolute Auto 2.68 K/uL (0.90-2.90); Mean Corpuscular HGB Conc 35 gm/dL (32-36); Mean Corpuscular Hemoglobin 30 pg (26-34); Mean Corpuscular Volume 85 fL (80-100); RDW Coefficient of Variation % 11.7 % (11.5-15.5); Red Blood Count* 4.51 m/uL (4.00-5.20); White Blood Count* 6.47 K/uL (4.50-11.00)
[2025-01-19 01:32] LABS: Slide Review Reflex No
[2025-01-19] MEDS: ONDANSETRON 2 MG/ML inj 4 MG IVP (01:36)
[2025-01-19 01:43] LABS: Albumin* 4.3 g/dL (3.3-5.0); Chloride* 106 mmol/L (96-114); Potassium* 3.8 mmol/L (3.6-5.1); Sodium* 140 mmol/L (135-149)
[2025-01-19 01:46] LABS: Blood Urea Nitrogen* 12 mg/dL (5-24); Creatinine* 0.9 mg/dL (0.5-1.5); Est. Creatinine Clearance* 78.51; Estimated Glomerular Filt Rate 86 ml/min
[2025-01-19 01:47] LABS: Alanine Aminotransferase* 18 U/L (4-35); Alkaline Phosphatase* 44 U/L (40-150); Anion Gap 10 mEq/L (7-15); Aspartate Amino Transferase* 22 U/L (12-35); Bilirubin Total* 0.5 mg/dL (0.1-1.5); Calcium* 9.3 mg/dL (8.4-10.6); Carbon Dioxide* 24 mmol/L (20-32); Glucose* 114 mg/dL (60-115); Total Protein* 7.5 g/dL (6.0-8.3)
--- NOTE | 2025-01-19 02:04 | CRLHL7_ITS ---
For Patients: As a result of the Century Cures Act, medical imaging exams and procedure reports are released immediately into your electronic medical record. You may view this report before your referring provider. If you have questions, please contact your health care provider. INDICATION: Right upper quadrant abdominal pain. TECHNIQUE: Ultrasound abdomen limited. Sonographic images of the gallbladder were obtained using johnson-scale and color Doppler images. COMPARISON: CT abdomen and pelvis 01/19/2025. FINDINGS: Gallbladder: Shadowing stones. Normal wall thickness. No pericholecystic fluid. Negative sonographic Snow`s sign. Common bile duct: 5 mm. IMPRESSION: Cholelithiasis without evidence of cholecystitis. Dictated by Laron Dobson MD @ 01/19/2025 3:25:53 AM (Electronically Signed)
[2025-01-19 03:52] VITALS: BP 124/89; PULSE 73; RESP 16; O2SAT 97
== END 2025-01-19 03:56 | disposition home or self-care (01) ==
PROVIDERS: Emergency Provider Family Medicine; PCP Family Medicine
DX: K80.20 Calculus of gallbladder without cholecystitis without obstruction (principal)
CPT/HCPCS: 36415; 74177; 76705; 80053; 81001; 81003; 81025; 83605; 83690; 85025; 86140; 87086; 96374; 96375; 99284; 99285; J1885; J2405; Q9967

== ENCOUNTER 2025-01-20 10:29 | Outpatient (CLI) | payer BC, SELFPAY ==
[2025-01-22 15:56] LABS: HPV Source Endocervical
[2025-01-27 08:01] LABS: Pap Test Digital Imaging Done
== END 2025-01-20 10:30 | disposition home or self-care (01) ==
PROVIDERS: PCP Family Medicine; Visit Provider Family Medicine
DX: Z00.00 Encounter for general adult medical examination without abnormal findings (principal); Z12.4 Encounter for screening for malignant neoplasm of cervix
CPT/HCPCS: 80061; 87624; 87625; 88141; 88142; 88175